=== PATIENT | male | born 1990 | race African-American/Black ===

== ENCOUNTER → 2020-05-28 | Outpatient (REF) | payer OTHER ==
[2020-05-28 23:55] LABS: CHLAMYDIA DNA AMPLIFICATION NEGATIVE (NEGATIVE); GC DNA AMPLIFICATION NEGATIVE (NEGATIVE)
== END ==
LOC: M LAB REF 22:05
PROVIDERS: ATTEND Physician Assistant Medical
DX: Z11.3 Encounter for screening for infections with a predominantly sexual mode of transmission (principal)

== ENCOUNTER 2021-11-30 02:24 | Emergency (ER) | payer OTHER ==
[~2021-11-30] VITALS: Ht 170.2 cm; Wt 70.5 kg
[2021-11-30 02:33] VITALS: BP 154/85
[2021-11-30] MEDS ORDERED: KETOROLAC 60MG 2ML VIAL IM ONE (03:55)
[2021-11-30] MEDS ORDERED: NAPR-837 PO (04:24)
== END 2021-11-30 04:38 | disposition home or self-care (01) ==
LOC: M ED 02:24
DX: S80.01XA Contusion of right knee, initial encounter (principal); M70.51 Other bursitis of knee, right knee; W22.8XXA Striking against or struck by other objects, initial encounter; Y92.39 Other specified sports and athletic area as the place of occurrence of the external cause; Y93.67 Activity, basketball; Y99.9 Unspecified external cause status
CPT/HCPCS: 73564; 96372; 99284; J1885

== ENCOUNTER → 2022-05-18 | Outpatient (REF) | payer OTHER ==
[~2022-05-18] MED LIST: NAPR-837 PO
[2022-05-18 21:57] LABS: APPEARANCE, URINE MANUAL CLEAR (CLEAR); COLOR, URINE MANUAL YELLOW (YELLOW); GLUCOSE, URINE (UA) MANUAL NEGATIVE (NEGATIVE); KETONE, URINE MANUAL NEGATIVE (NEGATIVE); PROTEIN, URINE MANUAL NEGATIVE (NEGATIVE); SPECIFIC GRAVITY,URINE MANUAL 1.015 (1.002-1.035); UROBILINOGEN, URINE MANUAL NORMAL (NORMAL)
[2022-05-18 21:58] LABS: BILIRUBIN, URINE MANUAL NEGATIVE (NEGATIVE); BLOOD URINE MANUAL NEGATIVE (NEGATIVE); LEUKOCYTE ESTERASE, URINE MAN NEGATIVE (NEGATIVE); NITRITE, URINE MANUAL NEGATIVE (NEGATIVE)
[2022-05-18 23:15] LABS: GC DNA AMPLIFICATION NEGATIVE (NEGATIVE)
== END ==
LOC: M LAB REF 21:24
PROVIDERS: ATTEND Physician Assistant
DX: N39.0 Urinary tract infection, site not specified (principal); Z11.3 Encounter for screening for infections with a predominantly sexual mode of transmission

== ENCOUNTER → 2022-12-19 | Outpatient (REF) | payer OTHER | LOC: M WUC 21:16 | PROVIDERS: ATTEND Physician Assistant | DX: K13.79 Other lesions of oral mucosa (principal); J02.9 Acute pharyngitis, unspecified ==

== ENCOUNTER 2024-01-02 14:10 | Emergency (ER) | payer OTHER ==
[~2024-01-02] VITALS: Ht 172.7 cm; Wt 73.9 kg
[2024-01-02 14:53] LABS: BASO % 0.6 % (0.0-1.0); EOS # 0.1 10^3/uL (0.0-0.5); EOS % 1.5 % (0.0-3.0); HEMATOCRIT 43.5 % (42.0-52.0); HEMOGLOBIN 14.3 g/dl (13.5-17.5); LYMPH # 1.7 10^3/uL (1.5-5.0); LYMPH % 31.5 % (24.0-44.0); MEAN CORPUSCULAR HEMOGLOBIN 30.4 pg (27.0-33.0); MEAN CORPUSCULAR HGB CONC 32.9 g/dl (32.0-36.5); MEAN CORPUSCULAR VOLUME 92.4 fl (80.0-96.0); MONO # 0.5 10^3/uL (0.0-0.8); MONO % 8.8 % (2.0-8.0); NEUTROPHILS % 57.4 % (36.0-66.0); PLATELET COUNT, AUTOMATED 209 10^3/uL (150-450); RED BLOOD COUNT 4.71 10^6/uL (4.30-6.10); WHITE BLOOD COUNT 5.2 10^3/uL (4.0-10.0)
[2024-01-02 15:08] LABS: LIPASE 28 U/L (12-53)
[2024-01-02 15:10] LABS: AMYLASE 65 U/L (30-118)
[2024-01-02 15:11] LABS: ALBUMIN 3.7 G/DL (3.2-5.2); ALKALINE PHOSPHATASE 69 U/L (46-116); ALT/SGPT 16 U/L (7.0-40); AST/SGOT 18 U/L (<34); BILIRUBIN,DIRECT 0.5 MG/DL (<0.4); BILIRUBIN,TOTAL 1.5 MG/DL (0.3-1.2); BLOOD UREA NITROGEN 12 MG/DL (9-23); CALCIUM LEVEL 8.9 MG/DL (8.5-10.1); CARBON DIOXIDE LEVEL 30 MMOL/L (20-31); CHLORIDE LEVEL 106 MMOL/L (98-107); CREATININE FOR GFR 1.03 MG/DL (0.70-1.30); GLOMERULAR FILTRATION RATE > 60.0 (>60); GLUCOSE, FASTING 86 MG/DL (60-100); SODIUM LEVEL 141 MMOL/L (136-145); TOTAL PROTEIN 6.9 G/DL (5.7-8.2)
[2024-01-02] MEDS ORDERED: ISOVUE-370 76% 100ML VIAL As Ordered ONE (17:37)
[2024-01-02] MEDS: KETOROLAC 30 MG/ML 1ML VIAL IV ONE (17:42)
[2024-01-02] MEDS: ONDANSETRON 4MG 2ML VIAL IV ONE (17:42)
[2024-01-02] MEDS ORDERED: ONDA4TAB6 PO (18:59)
[2024-01-02] MEDS ORDERED: IBUP-1022 PO (18:59)
[2024-01-02 19:09] VITALS: BP 126/85; TEMP 97.9; O2SAT 100
== END 2024-01-02 19:10 | disposition home or self-care (01) ==
LOC: M ED 14:10
DX: A08.4 Viral intestinal infection, unspecified (principal); M54.50 Low back pain, unspecified
CPT/HCPCS: 72110; 74177; 80048; 80076; 82150; 83690; 85025; 96374; 96375; 99284; J1885; J2405; Q9967

== ENCOUNTER 2024-04-20 22:26 | Emergency (ER) | payer OTHER ==
[~2024-04-20] VITALS: Ht 172.7 cm; Wt 76.1 kg
[~2024-04-20 22:26] MED LIST changes: +IBUP-1022 PO; +ONDA-282 PO
[2024-04-21 02:59] VITALS: TEMP 96.8
[2024-04-21 04:37] VITALS: BP 130/100; O2SAT 100
== END 2024-04-21 05:16 | disposition left against medical advice (07) ==
LOC: M ED 22:26
DX: Z53.21 Procedure and treatment not carried out due to patient leaving prior to being seen by health care provider (principal)